=== PATIENT | male | born 1990 | race Caucasian/White ===

== ENCOUNTER 2024-05-26 12:21 | Inpatient (IN) | payer OTHER ==
[2024-05-26 12:53] VITALS: BMI 24.2
[2024-05-26] MEDS ORDERED: ONDANSETRON *ODT* 4 MG TABLET SL PRN (14:25)
[2024-05-26] MEDS ORDERED: POLYETHYLENE GLYCOL (HEALTHYLAX) 3350 17 GM PACKET PO PRN (14:25)
[2024-05-26] MEDS ORDERED: MAG HYDROX/AL HYDROX/SIMETH 30 ML UNIT-DOSE CUP PO PRN (14:25)
[2024-05-26] MEDS ORDERED: MAGNESIUM HYDROX 2400MG/30ML ORAL SUSPENSION 30 ML CUP PO PRN (14:25)
[2024-05-26] MEDS ORDERED: LOPERAMIDE HCL 2 MG CAPSULE PO PRN (14:25)
[2024-05-26] MEDS ORDERED: DICYCLOMINE HCL 10 MG CAPSULE PO PRN (14:25)
[2024-05-26] MEDS ORDERED: BISMUTH SUBSALICYLATE 262 MG/15 ML BTL PO PRN (14:25)
[2024-05-26] MEDS ORDERED: NALOXONE (NARCAN) HCL 4 MG/0.1 ML SPRAY NS PRN (14:25)
[2024-05-26] MEDS ORDERED: BENZONATATE 200 MG CAPSULE PO PRN (14:25)
[2024-05-26] MEDS ORDERED: NALOXONE HCL 0.4 MG/ML VIAL IM PRN (14:25)
[2024-05-26] MEDS ORDERED: BENZOCAINE/MENTHOL (CHLORASEPTIC ) LOZENGE MM PRN (14:25)
[2024-05-26] MEDS ORDERED: guaiFENesin 600 MG TABLET.ER (FP) PO PRN (14:25)
[2024-05-26] MEDS: IBUPROFEN 400 MG TABLET (FP) PO PRN (15:35)
[2024-05-26] MEDS: hydrOXYzine PAMOATE 25 MG CAPSULE (FP) PO PRN (18:13)
[2024-05-26] MEDS: diazePAM 5 MG TABLET PO ONE (18:28)
[2024-05-26] MEDS: diazePAM 5 MG TABLET PO SCH (22:04)
[2024-05-26] MEDS: MELATONIN 5 MG TABLETS PO SCH (22:04)
[2024-05-26] MEDS: THIAMINE 100 MG TABLET PO SCH (22:04)
[2024-05-27] MEDS: ACETAMINOPHEN 325 MG TABLET (FP) PO PRN (05:34)
[2024-05-27] MEDS: diazePAM 5 MG TABLET PO SCH (05:34)
[2024-05-27] MEDS ORDERED: methaDONE HCL 10 MG TABLET PO SCH (08:30)
[2024-05-27] MEDS: PRENATAL VITAMINS W/ FOLIC ACID TABLET (FP) PO SCH (09:15)
[2024-05-27] MEDS: IBUPROFEN 600 MG TABLET (FP) PO PRN (09:18)
[2024-05-27 11:08] LABS: CHLORIDE 107 mmol/L (98-107); POTASSIUM 4.5 mmol/L (3.5-5.1); SODIUM 142 mmol/L (136-145)
[2024-05-27 11:13] LABS: ALBUMIN 3.2 g/dl (3.4-5.0); ANION GAP 5 mmol/L (4-13); BLOOD UREA NITROGEN 9.5 mg/dL (7-18); CALCIUM 8.6 mg/dL (8.5-10.1); CO2 30 mmol/L (21-32); GLUCOSE,RANDOM 64 mg/dL (74-106)
[2024-05-27 11:15] LABS: CREATININE 0.7 mg/dL (0.55-1.3); SGOT/AST 14 U/L (15-37); SGPT/ALT 21 U/L (13-61)
[2024-05-27 11:18] LABS: ALK PHOS 132 U/L (45-117); BILIRUBIN,TOTAL 0.7 mg/dL (0.2-1); TOT PROT 6.2 g/dl (6.4-8.2)
[2024-05-27 11:20] LABS: HEMATOCRIT 35.2 % (35.4-49); HEMOGLOBIN 11.8 GM/dL (11.7-16.9); MCH 29.4 pg (25.7-33.7); MCHC 33.6 g/dl (32.0-35.9); MEAN CELL VOLUME 87.6 fl (80-96); MEAN PLT VOLUME 6.7 fl (7.5-11.1); PLATELET COUNT 339 10^3/uL (134-434); RBC 4.02 M/mm3 (4.00-5.60); RDW 14.3 % (11.9-15.9); WHITE BLOOD COUNT 6.8 K/mm3 (4.0-10.0)
[2024-05-27] MEDS: PRAZOSIN HCL 1 MG CAPSULE PO SCH (22:05)
[2024-05-27] MEDS: GABAPENTIN 300 MG CAPSULE PO SCH (22:05)
[2024-05-27] MEDS: QUEtiapine FUMARATE 200 MG TABLET PO SCH (22:05)
[2024-05-28] MEDS: diazePAM 5 MG TABLET PO SCH (05:42)
[2024-05-28] MEDS: METHOCARBAMOL 500 MG TABLET PO PRN (05:45)
[2024-05-28] MEDS: diazePAM 5 MG TABLET PO PRN (14:22)
[2024-05-29] MEDS: diazePAM 5 MG TABLET PO ONE (05:32)
[2024-05-30] MEDS: diazePAM 5 MG TABLET PO ONE (10:13)
[2024-06-01 06:25] VITALS: PULSE 72; RESP 16
[2024-06-01 09:54] VITALS: BP 109/59; TEMP 97.3
== END 2024-06-01 12:13 | disposition other institution (70) | DRG 773 ==
LOC: YASAS 12:21 → Y3N 14:39
PROVIDERS: ADMIT Allergy & Immunology; ATTEND Surgery
PROC: HZ2ZZZZ Detoxification Services for Substance Abuse Treatment (ICD-10-PCS; principal; 2024-05-26)
DX: F10.230 Alcohol dependence with withdrawal, uncomplicated (principal); F11.20 Opioid dependence, uncomplicated; F13.20 Sedative, hypnotic or anxiolytic dependence, uncomplicated; F14.20 Cocaine dependence, uncomplicated; F17.210 Nicotine dependence, cigarettes, uncomplicated; F32.A Depression, unspecified; R76.8 Other specified abnormal immunological findings in serum; Z86.19 Personal history of other infectious and parasitic diseases; Z86.59 Personal history of other mental and behavioral disorders; Z91.410 Personal history of adult physical and sexual abuse; Z63.0 Problems in relationship with spouse or partner
CPT/HCPCS: 36415; 80053; 80305; 80307; 85027; 86593; 86780; 87811; 93005; 93010

== ENCOUNTER 2024-06-01 12:19 | Inpatient (IN) | payer OTHER ==
[2024-06-01] MEDS ORDERED: MAGNESIUM HYDROX 2400MG/30ML ORAL SUSPENSION 30 ML CUP PO PRN (15:00)
[2024-06-01] MEDS ORDERED: NALOXONE HCL 0.4 MG/ML VIAL IVPUSH PRN (15:00)
[2024-06-01] MEDS ORDERED: MAG HYDROX/AL HYDROX/SIMETH 30 ML UNIT-DOSE CUP PO PRN (15:00)
[2024-06-01] MEDS ORDERED: guaiFENesin 600 MG TABLET.ER (FP) PO PRN (15:00)
[2024-06-01] MEDS ORDERED: hydrOXYzine PAMOATE 25 MG CAPSULE (FP) PO PRN (15:00)
[2024-06-01] MEDS ORDERED: AMMONIUM LACTATE 12% LOTION 225 GM BOTTLE TP PRN (15:00)
[2024-06-01] MEDS ORDERED: LOPERAMIDE HCL 2 MG CAPSULE PO PRN (15:00)
[2024-06-01] MEDS ORDERED: NALOXONE (NARCAN) HCL 4 MG/0.1 ML SPRAY NS PRN (15:00)
[2024-06-01] MEDS ORDERED: ACETAMINOPHEN 325 MG TABLET (FP) PO PRN (15:00)
[2024-06-01] MEDS ORDERED: POLYETHYLENE GLYCOL (HEALTHYLAX) 3350 17 GM PACKET PO PRN (15:00)
[2024-06-01] MEDS ORDERED: BENZOCAINE/MENTHOL (CHLORASEPTIC ) LOZENGE MM PRN (15:00)
[2024-06-01] MEDS ORDERED: NICOTINE POLACRILEX 4 MG LOZENGE BC PRN (15:00)
[2024-06-01] MEDS ORDERED: BENZONATATE 200 MG CAPSULE PO PRN (15:00)
[2024-06-01] MEDS: TUBERCULIN PPD 5 TU/0.1ML VIAL ID ONE (17:17)
[2024-06-01] MEDS: hydrOXYzine PAMOATE 50 MG CAPSULE (FP) PO PRN (17:20)
[2024-06-01] MEDS: MELATONIN 5 MG TABLETS PO SCH (21:34)
[2024-06-01] MEDS: IBUPROFEN 600 MG TABLET (FP) PO PRN (21:37)
[2024-06-01] MEDS: METHOCARBAMOL 500 MG TABLET PO PRN (21:37)
[2024-06-01] MEDS: PRAZOSIN HCL 1 MG CAPSULE PO SCH (21:39)
[2024-06-01] MEDS: GABAPENTIN 300 MG CAPSULE PO SCH (21:39)
[2024-06-01] MEDS: QUEtiapine FUMARATE 200 MG TABLET PO SCH (21:39)
[2024-06-01] MEDS: THIAMINE 100 MG TABLET PO SCH (21:39)
[2024-06-02] MEDS ORDERED: methaDONE HCL 10 MG TABLET PO SCH (06:00)
[2024-06-02] MEDS: PRENATAL VITAMINS W/ FOLIC ACID TABLET (FP) PO SCH (10:02)
[2024-06-02] MEDS: NICOTINE 14 MG/24 HOURS TOPICAL PATCH TD SCH (10:02)
[2024-06-02] MEDS: BACITRACIN 0.9 GM PACKET TP SCH (21:37)
[2024-06-03] MEDS: LACTULOSE 20 GM/30 ML UDC (FOR ORAL USE ONLY) PO SCH (14:14)
[2024-06-11] MEDS: NICOTINE POLACRILEX 4 MG GUM BUC PRN (10:23)
[2024-06-16] MEDS: PENICILLIN G BENZATHINE 2,400,000 UNIT/4 ML PFS IM ONE (14:47)
[2024-06-16] MEDS: IBUPROFEN 400 MG TABLET (FP) PO PRN (19:46)
[2024-06-17 07:12] VITALS: BP 111/73; PULSE 80; RESP 16; TEMP 97.4
== END 2024-06-17 10:00 | disposition home or self-care (01) | DRG 772 ==
LOC: YASAS 12:19 → Y5N 12:20
PROVIDERS: ADMIT Psychiatry & Neurology Pain Medicine; ATTEND Psychiatry & Neurology Pain Medicine
PROC: HZ42ZZZ Group Counseling for Substance Abuse Treatment, Cognitive-Behavioral (ICD-10-PCS; principal; 2024-06-01)
DX: F10.20 Alcohol dependence, uncomplicated (principal); F13.20 Sedative, hypnotic or anxiolytic dependence, uncomplicated; F11.20 Opioid dependence, uncomplicated; F12.20 Cannabis dependence, uncomplicated; F17.210 Nicotine dependence, cigarettes, uncomplicated; F41.9 Anxiety disorder, unspecified; F32.A Depression, unspecified; F90.9 Attention-deficit hyperactivity disorder, unspecified type; E72.20 Disorder of urea cycle metabolism, unspecified; G47.00 Insomnia, unspecified; Z87.820 Personal history of traumatic brain injury; Z59.00 Homelessness unspecified; Z56.0 Unemployment, unspecified
CPT/HCPCS: 82140